=== PATIENT | female | born 2000 | race Asian ===

== ENCOUNTER 2023-09-08 08:00 | Outpatient (CLI) | payer OTHER ==
[2023-09-08 17:37] LABS: BILIRUBIN,URINE NEGATIVE (NEGATIVE); GLUCOSE, URINE (UA) NEGATIVE (NEGATIVE); KETONES,URINE (UA) NEGATIVE (NEGATIVE); LEUKOCYTE ESTERASE, URINE NEGATIVE (NEGATIVE); NITRITE,URINE NEGATIVE (NEGATIVE); OCCULT BLOOD,URINE NEGATIVE (NEGATIVE); PH,URINE 7.5 PH (5.0-7.5); PROTEIN,URINE NEGATIVE (NEGATIVE); UROBILINOGEN,URINE 1 (NORMAL) E.U./dL (NORMAL)
[2023-09-08 17:44] LABS: CLARITY,URINE CLEAR (CLEAR)
[2023-09-08 17:59] LABS: BACTERIA,URINE None Seen /HPF (None Seen); RBC,URINE 0-5 /HPF (0-5); SQUAMOUS EPITHELIAL CELL,UR FEW Squamous (<= Few); WBC,URINE 0-3 /HPF (0-5)
== END 2023-09-08 23:59 | disposition home or self-care (01) ==
LOC: LAB.WC 08:00
PROVIDERS: ATTEND Obstetrics & Gynecology
DX: Z34.90 Encounter for supervision of normal pregnancy, unspecified, unspecified trimester (principal)
CPT/HCPCS: 81001; 87086

== ENCOUNTER 2023-09-24 17:16 | Outpatient (CLI) | payer OTHER ==
--- NOTE | 2023-09-25 21:39 | Ultrasound Report ---
PROCEDURE: OB 1st Trimester INDICATIONS: POSITIVE TEST OUTSIDE/PRIOR DATING DATA: Last menstrual period (LMP): 06/28/2023. LMP-based estimated date of delivery (JOSE LUIS): 04/03/2024. First dating scan (date and location): 09/24/2023. Estimated date of delivery (JOSE LUIS) from first dating scan: 05/31/2023. TECHNIQUE: Real-time scanning was performed of the fetus and maternal pelvic organs, with image documentation. COMPARISON: None. FINDINGS: Intrauterine gestational sac present. Embryo: [employer]-rump length measures 6.8 cm corresponding to 13 weeks 1 day Heart rate: 158 bpm. Other: No perigestational fluid collection. Measurement variability in dating: +/- 4 weeks by LMP, +/- 7 days by mean sac diameter (use before 6 weeks gestation if crown-rump length not able to be measured), +/- 5 days by crown-rump length (6-12 weeks gestation). Maternal organs: Ovaries appear within normal limits. IMPRESSION: Single live intrauterine with gestational age of 13 weeks 1 day. Recommend follow-up imagin g at 20-22 weeks for dates and anatomy. Reviewed by: Yuliana Olson MD on 09/25/2023 9:38 PM PDT Approved by: Yuliana Olson MD on 09/25/2023 9:38 PM PDT Station ID: [id number]
== END 2023-09-24 17:17 | disposition home or self-care (01) ==
LOC: DI 17:16
PROVIDERS: ATTEND Obstetrics & Gynecology
DX: Z34.91 Encounter for supervision of normal pregnancy, unspecified, first trimester (principal)

== ENCOUNTER 2023-10-13 16:44 | Outpatient (CLI) | payer OTHER ==
[2023-10-13 20:39] LABS: BASOPHILS # (AUTO) 0.1 10^3/uL (0.0-0.1); BASOPHILS % (AUTO) 0.5 %; EOSINOPHILS # (AUTO) 0.1 10^3/uL (0.0-0.7); EOSINOPHILS % (AUTO) 0.8 %; HCT - HEMATOCRIT 38.5 % (37.0-47.0); LYMPHOCYTES # (AUTO) 2.7 10^3/uL (1.5-3.5); LYMPHOCYTES % (AUTO) 21.4 %; MEAN CORPUSCULAR HEMOGLOBIN 19.4 pg (27.0-31.0); MEAN CORPUSCULAR HGB CONC 31.2 g/dL (32.0-36.0); MEAN CORPUSCULAR VOLUME 62.4 fL (81.0-99.0); MONOCYTES # (AUTO) 0.8 10^3/uL (0.0-1.0); MONOCYTES % (AUTO) 6.1 %; NEUTROPHILS # (AUTO) 8.9 10^3/uL (1.5-6.6); NEUTROPHILS % (AUTO) 70.6 %; PLT - PLATELET COUNT 277 10^3/uL (130-450); RED BLOOD COUNT 6.17 10^6/uL (4.20-5.40); RED CELL DISTRIBUTION WIDTH 16.3 % (12.0-15.0); WHITE BLOOD COUNT 12.5 x10^3/uL (4.8-10.8)
[2023-10-13 20:43] LABS: SLIDE REVIEW? Indicated
[2023-10-13 21:35] LABS: PLATELET ESTIMATE, MANUAL NORMAL (130-450,000) (NORMAL); PLATELET MORPHOLOGY NORMAL APPEARANCE (NORMAL)
== END 2023-10-13 16:45 | disposition home or self-care (01) ==
LOC: LAB.N 16:44
PROVIDERS: ATTEND Obstetrics & Gynecology
DX: Z34.90 Encounter for supervision of normal pregnancy, unspecified, unspecified trimester (principal)
CPT/HCPCS: 36415; 85025; 86592; 86762; 86787; 86803; 86850; 86900; 86901; 87340; 87389

== ENCOUNTER 2023-10-16 08:00 | Outpatient (CLI) | payer OTHER ==
[2023-10-16 20:41] LABS: CHLAMYDIA TRACHOMATIS DNA NEGATIVE (NEGATIVE); NEISSERIA GONORRHOEAE DNA NEGATIVE (NEGATIVE); TRICHOMONAS VAGINALIS DNA NEGATIVE (NEGATIVE)
== END 2023-10-16 23:59 | disposition home or self-care (01) ==
LOC: LAB.WC 08:00
PROVIDERS: ATTEND Nurse Practitioner
DX: Z11.3 Encounter for screening for infections with a predominantly sexual mode of transmission (principal)
CPT/HCPCS: 87491; 87591; 87661

== ENCOUNTER 2023-12-07 15:59 | Outpatient (CLI) | payer OTHER ==
--- NOTE | 2023-12-08 15:54 | Ultrasound Report ---
PROCEDURE: OB Anatomy Scan INDICATIONS: SUPERVISION OF OUTSIDE/PRIOR DATING DATA: Last menstrual period (LMP): 06/28/2023. LMP-based estimated date of delivery (JOSE LUIS): 04/03/2024. First dating scan (date and location): 09/24/2023. Estimated date of delivery (JOSE LUIS) from first dating scan: 03/30/2024. The below data below was generated using the clinical JOSE LUIS of 04/03/2024 TECHNIQUE: Real-time scanning was performed of the fetus, with image documentation and biometric measurements. Endovaginal scanning: Not performed. COMPARISON: OB ultrasound 09/24/2023 FINDINGS: General: A single living intrauterine gestation is present. Presentation: Variable Placenta: Placental position is posterior. No previa. Amniotic fluid index: 12.7 cm, within normal limits for gestational age. Largest pocket 4.2 cm heart rate: 166 beats per minute. Maternal cervical canal: 4.9 cm long; normal length is 2.5 cm or more. Closed biometrics: Biparietal diameter: 5.78 cm, 23 weeks 5 days, 67 percentile. Head circumference: 21.9 cm, 24 weeks 0 days. 68 percentile. Abdominal circumference: 19.18 cm, 23 weeks 6 days. 66 percentile. Femur length: 4.02 cm, 23 weeks 0 days. 33 percentile. Estimated gestational age from initial scan: 23 weeks 1 day Composite gestational age from present scan: 23 weeks 6 days Estimated weight and percentile: 606 g, 63rd percentile Measurement variability in biometric dating: +/- 10 days from 12-20 weeks gestation, +/- 2 weeks from 20-30 weeks gestation, +/- 3 weeks at 30 weeks gestation or later. Anatomic survey: Neuro: Ventricles are normal at less than 10 mm. Cisterna magna is normal at 3-11 mm. Cerebellum i s normal in size and morphology. Nuchal skin fold: Normal at less than 6 mm between 14 and 20 weeks gestational age. Face: Nose and lips, facial profile are normal. Spine: No evidence for spina bifida. Heart: 4-chambered heart is present, with normal ventricular outflow tracts. Diaphragm: Diaphragm is intact. Stomach: Left-sided stomach is present. Kidneys: No hydronephrosis. Normal is less than 5 mm in 2nd trimester, less than 7 mm in 3rd trimester. Cord: 3 vessel cord. Marginal cord insertion 1.5 cm - 1.9 cm from the placental edge. Bladder: Normal in size. Extremities: All 4 extremities are visualized. IMPRESSION: 1. [place] living intrauterine at 23 weeks 6 days based on today's ultrasound. Fetus is i n the 63rd percentile for weight. 2. Normal placenta and amniotic fluid. 3. Marginal cord insertion onto the placenta. Otherwise normal anatomic survey. Consider follow-up OB ultrasound. Reviewed by: Rudolph Ma MD on 12/08/2023 3:52 PM PDT Approved by: Rudolph Ma MD on 12/08/2023 3:52 PM PDT Station ID: [id number]
== END 2023-12-07 16:00 | disposition home or self-care (01) ==
LOC: DI 15:59
PROVIDERS: ATTEND Nurse Practitioner
DX: O43.192 Other malformation of placenta, second trimester (principal)

== ENCOUNTER 2024-03-30 01:57 | Inpatient (IN) ==
[2024-03-30] MEDS ORDERED: lidocaine 1% 20 ML MDV ONE (02:14)
[2024-03-30] MEDS: OXYTOCIN/SODIUM CHLORIDE 500 ML IV PRN (02:45)
[2024-03-30] MEDS ORDERED: OXYTOCIN/SODIUM CHLORIDE 500 ML IV ONE (02:46)
[2024-03-30] MEDS ORDERED: LACTATED RINGERS 1,000 ML ONE (02:46)
[2024-03-30] MEDS ORDERED: TRANEXAMIC ACID IN NACL 1,000 MG/100 ML BAG IV ONE (02:46)
[2024-03-30] MEDS: TRANEXAMIC ACID IN NACL 1,000 MG/100 ML BAG IV PRN (02:50)
[2024-03-30] MEDS: miSOPROStoL 200 MCG TABLET PR ONE (02:53)
[2024-03-30] MEDS ORDERED: METHYLERGONOVINE 0.2 MG/ML VIAL ONE (02:56)
--- NOTE | 2024-03-30 03:02 | HISTORY & PHYSICAL EXAMINATION ---
Admit History Visit Reason Visit Reason: Contractions Smoking Status: Never smoker Other Maternal History Other Maternal History: HPI: This 23 yo @ 39+4 weeks by LMP and confirmed by first trimester ultrasound ultrasound. She started to contract about 0100, but started to become more regular about 0130 this morning and she asked her to bring her to the hospital shortly thereafter. Upon arrival at 0200 her water broke spontaneously (clear) and she was found to be 7cm and I was called to labor and delivery. She has been a patient of [facility] for the duration of her which has remained uncomplicated with the exception of an elevated 1 hour glucose, normal profiling. ROS: No Headache, visual changes or right upper quadrant abdominal pain. Denies significant N/V. Denies urinary urgency or dysuria. All other symptoms reviewed and were negative except per HPI. In the event of an emergency, accepts the administration of blood products. OB Hx: G1: Term 2019 G2: Term 2021 G3: current Medical Hx: No significant Surgical Hx: None Social Hx: Monogamous with male partner. Denies current use of alcohol or tobacco, marijuana or other recreational drugs. Reports that she is safe in current relationship. Family Hx: Denies family history of congenital anomalies, Cystic Fibrosis or chromosomal abnormalities Allergies: NKDA Medications: PNV 23 yo . LMP: 06/28/23 JOSE LUIS by LMP: 04/03/24 US: 09/24/2023 @ 13+1 c/w LMP Final JOSE LUIS: 04/03/2024 FOB: Magnus Dudley, will deploy 2 wks after baby is born. here mom will be here from [place] to help. Other children: Rey 4 yo, Sharan 2 yo Pre- Weight:141.0 BMI: 26.75 Blood type: B+ Antibody: Negative CBC: PLT 277 HCT 38.5 HGB 12.0 RUB: Immune VZV: non-immune - reviewed HBsAg: Negative HepC: NR RPR/AB-EIA: NR HIV: NR PAP:2019 normal GC/CT: 10/16/2023 HSV:denies in self and partner Genetic testing: declined Covid:virus Flu: FAS: EFW 63% 3 VC Posterior placenta JA normal Marginal cord insertion. Discussed followup third trimester growth ultrasounds (8/21/24) 50gm OGCT: 01/18- 173 3HR GTT: TDAP: 01/07/2024 Breast Pump: 01/07/2024 Antibody screen: 3rd trimester H/H 10.5/35.3 PLT 258 3rd trimester HIV GBS: Delivery plan: MOD: Anticipate Contraception: vasectomy Physical exam: Normocephalic, atraumatic Heart RRR w/o M/G/R Lungs CTAB Abdomen gravid, soft, nontender. EFW 3600 FHR baseline 145, moderate variability, + accelerations, no significant decelerations Contractions q 2 minutes, palpate strongly. Desire to push SVE 7cm, grossly ruptured Bilateral LE's no edema Mood is good. Assessment: 23yo @ 39+4 weeks gestation byfirst trimester ultrasound Transitional labor FHR 145 Cat I-II GBS NEG Plan: Admit to [facility] for expected precipitous Continuous monitoring/ Intermittent heart rate auscultation. Jacuzzi PRN. Nitrous oxide PRN. Epidural PRN Maternal Request. Anticipate . HPI Current : Vital Signs Temperature 36.4 C L 03/30/24 02:38 Pulse Rate 105 H 03/30/24 02:38 Respiratory Rate 18 03/30/24 02:38 Temperature 36.4 C L 03/30/24 02:38 Pulse Rate 115 H 03/30/24 02:55 Respiratory Rate 18 03/30/24 02:38 Blood Pressure 124/86 03/30/24 02:55 Meds/Allgy Home Medications Ambulatory Orders Medication Instructions Recorded Confirmed vits no.126-ferrous fum 1 tab PO QDAY 02/10/24 03/30/24 28 mg iron-folic acid 800 mcg tablet (Classic ) Allergies Allergies Allergy/AdvReac Type Severity Reaction Status Date / Time No Known Drug Allergies Allergy Verified 03/30/24 07:59 PFSH Family History Family History (Updated 02/10/24 @ 13:45 by Nya Chavarria LPN) Father CAD (coronary artery disease) High blood pressure CVA (cerebral vascular accident) Mother Anemia Paternal grandmother Thyroid disorder Paternal grandfather Diabetes Social History Social History (Updated 02/10/24 @ 13:46 by Nya Chavarria LPN) Smoking Status: Never smoker Second hand tobacco smoke exposure: No Do you dip or chew tobacco?: No Do you vape?: No Patient requests smoking cessation consult: No Initiate information on smoking cessation: No ETOH Use: None Substance Use: denies use Are you sexually active?: Yes Control Method: None Physical Abdominal Exam Vital Signs: Temp Pulse Resp BP 36.4 C L 115 H 18 124/86 03/30/24 02:38 03/30/24 02:55 03/30/24 02:38 03/30/24 02:55 Plan for Labor Plan For Labor I expect patient to be DC'd or transferred within 96 hours.: Yes Conclusion/Plan Lab Results 03/30/24 02:45 03/30/24 03:54
[2024-03-30] MEDS ORDERED: LABETALOL 20 MG/4 ML SYRINGE IVP PRN ×5 (03:24→03:58)
[2024-03-30] MEDS ORDERED: miSOPROStoL 200 MCG TABLET BC PRN (03:24)
[2024-03-30] MEDS ORDERED: METHYLERGONOVINE 0.2 MG/ML VIAL IM PRN ×2 (03:24→03:58)
[2024-03-30] MEDS ORDERED: NIFEdipine 10 MG CAPSULE PO PRN ×2 (03:24→03:58)
[2024-03-30] MEDS ORDERED: hydrALAZINE INJ 20 MG/ML VIAL IVP PRN ×3 (03:24→03:58)
[2024-03-30] MEDS ORDERED: miSOPROStoL 200 MCG TABLET PR PRN (03:24)
[2024-03-30] MEDS ORDERED: SODIUM CHLORIDE FLUSH 0.9% 10 ML SYRINGE IVP PRN ×2 (03:24)
--- NOTE | 2024-03-30 03:27 | DELIVERY NOTE ---
Delivery Note Labor Labor: positive Spontaneous Infant Delivery Method Infant Delivery Method: positive Spontaneous vaginal delivery Presentation Presentation: positive Vertex Nuchal Cord Nuchal Cord: positive None Amniotic Fluid Description Amniotic Fluid Description: positive Clear Laceration Laceration: positive None Delivery Outcome Delivery Date: 03/30/24 Delivery Comments (Free Text/Narrative) Delivery Comments (Free Text/Narrative): This 23 -year-old, G 3 P2002 @ 39+4 weeks gestation by LMP/ first trimester ultrasound/ LMP presented @ 0200 in transitional labor. Cervix was 7cm, thomas grossly ruptured, Vertex presentation by exam. GBS negative. Limited tracing prior to . Precipitous and unmedicate labor and .SROM @0200 in triage. She then progressed to complete/complete @ 0222, I arrived on the unit @0223 and she was at that time well supported by her nursing team. : Normal spontaneous vaginal delivery of a viable female infant on 03/30/2024 @ 0224. No nuchal cord. The was placed on maternal abdomen, stimulated, dried and placed skin to skin. Apgars 9 & 10 @ 1 & 5 minutes. The umbilical cord was allowed to stop pulsating at which time it was doubly clamped by delivering provider and cut by FOB. 3VC. Cord blood was obtained. Fundal massage and gently cord traction applied for active management of the third stage, placenta delivered spontaneously and intact and appeared normal @ 0233. QBL 687. Placenta was WAS NOT sent to pathology. IV placed following third stage with increased bleeding. 10u of pitocin IM administered initially. Then 30u Pitocin added to the IV fluid and allowed to run freely. increased bleeding continued and 600mcg of misoprostol was available in the room so that dose was administered FL. 1g TXA administered by IV to follow. The Uterine then maintained good tone with continued massage and bleeding significantly decreased. Perineum intact. No repair. Needle and sponge counts were correct. Uterine fundus firm again found to be firm. Skin to skin continued. Family bonding well. Both mother and baby are in stable condition.
[2024-03-30] MEDS: lidocaine 1% 20 ML MDV ID PRN (03:34)
[2024-03-30] MEDS: OXYTOCIN 10 UNIT/ML VIAL IM PRN (03:36)
[2024-03-30 03:46] LABS: BASOPHILS % (AUTO) 0.2 %; EOSINOPHILS % (AUTO) 0.2 %; HCT - HEMATOCRIT 42.3 % (37.0-47.0); HGB - HEMOGLOBIN 12.8 g/dL (12.0-16.0); LYMPHOCYTES # (AUTO) 2.4 10^3/uL (1.5-3.5); LYMPHOCYTES % (AUTO) 16.9 %; MEAN CORPUSCULAR HEMOGLOBIN 19.1 pg (27.0-31.0); MEAN CORPUSCULAR HGB CONC 30.3 g/dL (32.0-36.0); MEAN CORPUSCULAR VOLUME 63.1 fL (81.0-99.0); MONOCYTES # (AUTO) 0.7 10^3/uL (0.0-1.0); MONOCYTES % (AUTO) 5.1 %; NEUTROPHILS # (AUTO) 10.7 10^3/uL (1.5-6.6); NEUTROPHILS % (AUTO) 76.8 %; PLT - PLATELET COUNT 206 10^3/uL (130-450); RED CELL DISTRIBUTION WIDTH 19.9 % (12.0-15.0)
[2024-03-30] MEDS ORDERED: diphenhydrAMINE 25 MG CAPSULE PO PRN (03:58)
[2024-03-30] MEDS ORDERED: LABETALOL 5 MG/1 ML 20 ML MDV IVP PRN (03:58)
[2024-03-30] MEDS ORDERED: NALOXONE 0.4 MG/ML VIAL IVP PRN (03:58)
[2024-03-30] MEDS ORDERED: TRANEXAMIC ACID IN NACL 1,000 MG/100 ML BAG IV PRN (03:58)
[2024-03-30] MEDS ORDERED: OXYTOCIN/SODIUM CHLORIDE 500 ML IV PRN (03:58)
[2024-03-30] MEDS ORDERED: OXYTOCIN 10 UNIT/ML VIAL IM PRN (03:58)
[2024-03-30] MEDS ORDERED: SIMETHICONE CHEW 80 MG TABLET PO PRN (03:58)
[2024-03-30] MEDS ORDERED: METOCLOPRAMIDE 10 MG TABLET PO PRN (03:58)
[2024-03-30] MEDS ORDERED: HYDROCORTISONE 1% CREAM 28 GM TUBE TOP PRN (03:58)
[2024-03-30] MEDS ORDERED: ONDANSETRON 4 MG/2 ML VIAL IVP PRN (03:58)
[2024-03-30] MEDS ORDERED: METOCLOPRAMIDE 10 MG/2 ML VIAL IVP PRN (03:58)
[2024-03-30] MEDS ORDERED: WITCH HAZEL/GLYCERIN 1 PAD TOP PRN (03:58)
[2024-03-30 04:20] LABS: ALBUMIN 3.2 g/dL (3.2-5.5); ALBUMIN/GLOBULIN RATIO 1.2 (1.0-2.2); BILIRUBIN,TOTAL 0.3 mg/dL (0.2-1.0); CREATININE 0.5 mg/dL (0.6-1.3); POTASSIUM 3.7 mmol/L (3.5-4.5); TOTAL PROTEIN 5.9 g/dL (6.4-8.9)
[2024-03-30 07:39] VITALS: O2SAT 99
[2024-03-30] MEDS: ACETAMINOPHEN 500 MG TABLET PO PRN (09:05)
[2024-03-30] MEDS: IBUPROFEN 600 MG TABLET PO PRN (09:05)
[2024-03-30] MEDS: PRENATAL VITAMIN TABLET PO SCH (09:05)
[2024-03-30] MEDS: DOCUSATE SODIUM 100 MG CAPSULE PO SCH (09:06)
--- NOTE | 2024-03-30 10:58 | PHARMACY PROGRESS NOTE ---
Best Possible Medication History Admit Date and Time: 03/30/24 0206 Home Medications Medication Instructions Recorded Confirmed Type vits no.126-ferrous fum 1 tab PO QDAY 02/10/24 03/30/24 History 28 mg iron-folic acid 800 mcg tablet (Classic ) Processed by: Pharmacy Medications reviewed in ED?: No Medication History completed: Yes Patient Interview: Completed [facility] Statement: As the person ultimately responsible for medication therapy, providers are able to order a medication from an existing home medication list in [facility] via the "Reconcile Routine" prior to Confirmation of that medication by aircraft life support fitter. Such practice is discouraged except when the physician, in their clinical judgment, deems that a medical need exists for a medication without regard to previous use.
[2024-03-30] MEDS: SODIUM CHLORIDE FLUSH 0.9% 10 ML SYRINGE IVP SCH (11:05)
--- NOTE | 2024-03-30 11:25 | PROVIDER PROGRESS NOTE ---
Subjective Prog Note Date Prog Note Date: 03/30/24 Prog Note Time: 10:00 Subjective Pt reports feeling: Improved Subjective: Subjective: Patient reports she is doing well. Comfortable WITHOUT pain management Lochia appropriate. Denies heavy bleeding. Did have increased bleeding immediately following . Ambulating. Pelvic and abdominal pain well-controlled. Tolerating oral intake. Diet: Regular. Voiding without difficulty. Passing flatus. Denies BM. Patient is bonding with baby in room Breast feeding going well. Denies feeling lightheaded, dizzy or excessively fatigued. Objective General: Alert, oriented, no apparent distress. Cardiovascular: No edema. Regular rate. Regular rhythm. Lungs: No increased work of breathing. Abdomen: Uterus firm. Below umbilicus. No guarding or rebound tenderness. Extremities: No pain on palpation. Distal pulses intact. Assessment and Plan 23yo s/p precipitous labor and delivery this morning at 0224 viable female . doing well - Routine , POSTOPERATIVE care - Anticipate discharge tomorrow Current Medications Current Medications Current Medications: Current Medications Generic Name Dose Route Start Last Admin Trade Name Freq PRN Reason Stop Dose Admin Acetaminophen 1,000 mg 03/30/24 03:58 03/30/24 09:05 Acetaminophen 500 Mg Tablet PO 1,000 mg Q8HR PRN Administration Mild Pain or Fever>38C(100.4F) Diphenhydramine HCl 25 mg 03/30/24 03:58 Diphenhydramine 25 Mg Capsule PO Q6HR PRN Allergy Symptoms Docusate Sodium 100 mg 03/30/24 09:00 03/30/24 09:06 Docusate Sodium 100 Mg Capsule PO 100 mg BID PURNIMA Administration Hydralazine HCl 10 mg 03/30/24 03:58 Hydralazine Inj 20 Mg/Ml Vial IVP .ONCE PRN SBP> or= 160 OR DBP> or= 110 Protocol Hydralazine HCl 5 - 10 mg 03/30/24 03:58 Hydralazine Inj 20 Mg/Ml Vial IVP Q20M PRN SBP >=160 and/or DBP >=110 Protocol Hydrocortisone 1 applic 03/30/24 03:58 Hydrocortisone 1% Cream 28 Gm Tube TOP QID PRN Hemorrhoids Oxytocin/Sodium Chloride 500 mls @ 999 mls/hr 03/30/24 03:58 Pitocin/Sodium Chloride IV PRN PRN POST- HEMORR PREVENTION Protocol 999 MILLIUNIT/MIN Tranexamic Acid 1,000 mg in 100 mls @ 600 mls/hr 03/30/24 03:58 Tranexamic 1,000 Mg/100ml-Nacl IV Q30M PRN Uterine Atony / Uterine Bleed Ibuprofen 600 mg 03/30/24 03:58 03/30/24 09:05 Ibuprofen 600 Mg Tablet PO 600 mg Q6HR PRN Administration Moderate Pain (Level 4-6) Labetalol HCl 20 - 80 mg 03/30/24 03:58 Labetalol 5 Mg/1 Ml 20 Ml Mdv IVP Q10M PRN SBP> or= 160 OR DBP> or= 110 Protocol Labetalol HCl 20 - 40 mg 03/30/24 03:58 Labetalol 20 Mg/4 Ml Syringe IVP Q10M PRN SBP> or= 160 OR DBP> or= 110 Protocol Labetalol HCl 20 mg 03/30/24 03:58 Labetalol 20 Mg/4 Ml Syringe IVP .ONCE PRN SBP >=160 and/or DBP >=110 Protocol Methylergonovine Maleate 0.2 mg 03/30/24 03:58 Methylergonovine 0.2 Mg/Ml Vial IM .ONCE PRN Uterine Atony / Uterine Bleed Metoclopramide HCl 5 mg 03/30/24 03:58 Metoclopramide 10 Mg Tablet PO Q6HR PRN Nausea / Vomiting Metoclopramide HCl 5 mg 03/30/24 03:58 Metoclopramide 10 Mg/2 Ml Vial IVP Q6HR PRN Nausea / Vomiting Naloxone HCl 0.4 mg 03/30/24 03:58 Naloxone 0.4 Mg/Ml Vial IVP .ONCE PRN Opioid Overdose Nifedipine 10 - 20 mg 03/30/24 03:58 Nifedipine 10 Mg Capsule PO Q20M PRN SBP >=160 and/or DBP >=110 Protocol Ondansetron HCl 4 mg 03/30/24 03:58 Ondansetron 4 Mg/2 Ml Vial IVP Q4HR PRN Nausea / Vomiting Oxytocin 10 unit 03/30/24 03:58 Oxytocin 10 Unit/Ml Vial IM .ONCE PRN Uterine Atony / Uterine Bleed Multivit/Folic Acid/Iron 1 tab 03/30/24 09:00 03/30/24 09:05 Vitamin Tablet PO 1 tab DAILY PURNIMA Administration Simethicone 80 mg 03/30/24 03:58 Simethicone Chew 80 Mg Tablet PO TID PRN Gas Sodium Chloride 10 ml 03/30/24 03:24 Sodium Chloride Flush 0.9% 10 Ml Syringe IVP PRN PRN NEEDED PER PROVIDER ORDERS Sodium Chloride 10 ml 03/30/24 09:00 03/30/24 11:05 Sodium Chloride Flush 0.9% 10 Ml Syringe IVP 10 ml 0100,0900,1700 PURNIMA Administration Witch Mary/Glycerin 1 pad 03/30/24 03:58 Witch Mary/Glycerin 1 Pad TOP PRN PRN ITCHING Objective Vital Signs/Intake & Output Vital Signs: Vital Signs x48h Temp Pulse Resp BP Pulse Ox 03/30/24 07:39 36.8 C 88 14 120/77 99 03/30/24 04:12 80 16 127/85 Intake & Output: Intake & Output 03/27/24 03/28/24 03/29/24 03/30/24 23:59 23:59 23:59 23:59 Intake Total 850 / 850 Output Total 200 / 200 Balance 650 / 650 Weight (kg) 155 lb Lab Results 03/30/24 02:45 03/30/24 03:54 Other Labs: Lab Results x24hrs 03/30/24 03/30/24 03/30/24 Range/Units 03:54 02:45 02:45 WBC (4.8-10.8) x10^3/uL RBC (4.20-5.40) 10^6/uL Hgb (12.0-16.0) g/dL Hct (37.0-47.0) % MCV (81.0-99.0) fL MCH (27.0-31.0) pg MCHC (32.0-36.0) g/dL RDW (12.0-15.0) % Plt Count (130-450) 10^3/uL Neut # (Auto) (1.5-6.6) 10^3/uL Lymph # (Auto) (1.5-3.5) 10^3/uL [place] # (Auto) (0.0-1.0) 10^3/uL Eos # (Auto) (0.0-0.7) 10^3/uL Baso # (Auto) (0.0-0.1) 10^3/uL Absolute Nucleated RBC x10^3/uL Nucleated RBC % /100WBC RBC Morph Micro Appear 2+ ANISOCYTOSIS 3+ MICROCYTOSIS (NORMAL) Sodium 129 L (135-145) mmol/L Potassium 3.7 (3.5-4.5) mmol/L Chloride 103 (101-111) mmol/L Carbon Dioxide 20 L (21-32) mmol/L Anion Gap 6.0 (6-13) BUN 7 (6-20) mg/dL Creatinine 0.5 L (0.6-1.3) mg/dL Estimated GFR (MDRD) 153 (>89) Glucose 104 (74-104) mg/dL Calcium 8.0 L (8.5-10.3) mg/dL Total Bilirubin 0.3 (0.2-1.0) mg/dL AST 11 (10-42) IU/L ALT 7 L (10-60) IU/L Alkaline Phosphatase 88 (42-121) IU/L Total Protein 5.9 L (6.4-8.9) g/dL Albumin 3.2 (3.2-5.5) g/dL Globulin 2.7 (2.1-4.2) g/dL Albumin/Globulin Ratio 1.2 (1.0-2.2) Blood Type B POSITIVE Antibody Screen NEGATIVE 03/30/24 03/30/24 03/30/24 Range/Units 02:45 02:45 02:45 WBC 14.0 H (4.8-10.8) x10^3/uL RBC 6.70 H (4.20-5.40) 10^6/uL Hgb 12.8 (12.0-16.0) g/dL Hct 42.3 (37.0-47.0) % MCV 63.1 L (81.0-99.0) fL MCH 19.1 L (27.0-31.0) pg MCHC 30.3 L (32.0-36.0) g/dL RDW 19.9 H (12.0-15.0) % Plt Count 206 (130-450) 10^3/uL Neut # (Auto) 10.7 H (1.5-6.6) 10^3/uL Lymph # (Auto) 2.4 (1.5-3.5) 10^3/uL [place] # (Auto) 0.7 (0.0-1.0) 10^3/uL Eos # (Auto) 0.0 (0.0-0.7) 10^3/uL Baso # (Auto) 0.0 (0.0-0.1) 10^3/uL Absolute Nucleated RBC 0.00 x10^3/uL Nucleated RBC % 0.0 /100WBC RBC Morph Micro Appear 2+ OVALOCYTES 2+ HYPOCHROMASIA 1+ POLYCHROMASIA (NORMAL) Sodium (135-145) mmol/L Potassium (3.5-4.5) mmol/L Chloride (101-111) mmol/L Carbon Dioxide (21-32) mmol/L Anion Gap (6-13) BUN (6-20) mg/dL Creatinine (0.6-1.3) mg/dL Estimated GFR (MDRD) (>89) Glucose (74-104) mg/dL Calcium (8.5-10.3) mg/dL Total Bilirubin (0.2-1.0) mg/dL AST (10-42) IU/L ALT (10-60) IU/L Alkaline Phosphatase (42-121) IU/L Total Protein (6.4-8.9) g/dL Albumin (3.2-5.5) g/dL Globulin (2.1-4.2) g/dL Albumin/Globulin Ratio (1.0-2.2) Blood Type Antibody Screen
[2024-03-31 05:51] LABS: HCT - HEMATOCRIT 32.5 % (37.0-47.0); HGB - HEMOGLOBIN 10.3 g/dL (12.0-16.0); MEAN CORPUSCULAR HEMOGLOBIN 19.8 pg (27.0-31.0); MEAN CORPUSCULAR HGB CONC 31.7 g/dL (32.0-36.0); MEAN CORPUSCULAR VOLUME 62.5 fL (81.0-99.0); PLT - PLATELET COUNT 188 10^3/uL (130-450); WHITE BLOOD COUNT 13.5 x10^3/uL (4.8-10.8)
--- NOTE | 2024-03-31 07:43 | Discharge Summary ---
Discharge Summary HPI History of Present Illness: Date of Admission: 03/30/2024 Date of Discharge: 03/31/2024 Diagnosis on admission: 1. 23yo @ 39+4 weeks gestation byfirst trimester ultrasound 2. Transitional labor 3. FHR 145 Cat I-II 4. GBS NEG Diagnosis on Discharge 1. 23 yo PPD #1 2. S/P precipitous 03/30/2024 3. Intact perineum 4. Increased bleeding resolved with medication intervention Physical exam: Normocephalic, atraumatic Heart RRR w/o M/G/R Lungs CTAB Normal uterine involution, FF below umbilicus scant rubra bleeding minimal perineal discomfort. Bilateral LE's no edema Mood is good. Brief History: She is a patient of [facility] who presented and delievered precipitously on 03/30/2024. Labor progressed naturally without medication pain management. She spontaneously delivered a viable female apgars 9 and 10 at 1 and 5 minutes respectively. QBL 687 ml. intact perineum. She has been doing well in her course. She is ambulating and tolerating a regular diet. She is urinating without difficulty and her lochia is normal. Her pain is well controlled without narcotic management. She will be discharged to home today on day X and encouraged IBU, tylenol and stool softeners PRN. She intends to follow up with [facility] in 1 week for telehealth. She has been given precautions to call if she has any new or worsening sx such as fevers, chills, abdominal pain, increasing bleeding, or foul smelling vaginal lochia. preeclamptic precautions reviewed as well. ALLERGIES Allergies Allergy/AdvReac Type Severity Reaction Status Date / Time No Known Drug Allergies Allergy Verified 03/30/24 07:59 MEDICATIONS Ambulatory Orders Medication Instructions Recorded Confirmed vits no.126-ferrous fum 1 tab PO QDAY 02/10/24 03/30/24 28 mg iron-folic acid 800 mcg tablet (Classic ) LABS 03/31/24 05:42 03/30/24 03:54 TIME SPENT Time Spent in Discharge (Minutes): 20 Discharge Plan Discharge Patient Disposition: Home, Self Care Prescriptions: Continued Classic 28 mg iron- 800 mcg tablet 1 tab PO QDAY Print Language: Romanian Patient Instructions: Vaginal After, Childbirth Breast Care
[2024-03-31 08:48] VITALS: BP 122/71; TEMP 208.6
--- NOTE | 2024-03-31 09:57 | Labor Flowsheet ---
Labor Flowsheet Datetime Report Generated by CPN: 03/31/2024 09:56 Datetime: 03/30/2024 05:04 Pulse: 61 SpO2 (%): 96 COMMUNICATION LaborFlag: OB Triage Datetime: 03/30/2024 04:58 VITAL SIGNS NBP Sys/Opal/Mean (mmHg): 124 : 70 : 83 Datetime: 03/30/2024 02:23 ASSESSMENT A Comments: k patriciaprakash cnm at bedside Datetime: 03/30/2024 02:22 VAGINAL EXAM Dilatation (cm): 10.0 Effacement (%): 100 Station: 3
== END 2024-03-31 09:50 | disposition home or self-care (01) | DRG 807 ==
LOC: WFO 01:57 → FBP 02:05
PROVIDERS: ADMIT Nurse Practitioner; ATTEND Nurse Practitioner